=== PATIENT | female | born 1980 | race Caucasian/White ===

== ENCOUNTER 2022-12-24 12:32 | Emergency (ER) | payer OTHER, SELFPAY ==
--- NOTE | 2022-12-24 12:40 | ECG_ITS ---
[facility] Test Date: 2022-12-24 Pat Name: JAIDEN SUN Department: Room: Gender: Female Attendant [facility]: : 1980 Requested By: Nathalia Zambrano Order Number: [id number] Alexis MD: Phillip Benson M.D. Measurements Intervals [place] Rate: 58 P: 28 [place]: 133 QRS: 59 QRSD: 94 T: 54 QT: 409 QTc: 405 Interpretive Statements SINUS BRADYCARDIA WITH SINUS ARRHYTHMIA No previous ECG available for comparison Electronically Signed On 12-24-2022 16:03:34 CDT by Phillip Benson M.D. [id number] f
[2022-12-24 12:49] VITALS: BP 110/71; PULSE 71; RESP 18; TEMP 36.6; O2SAT 100; BMI 25.8
--- NOTE | 2022-12-24 12:54 | XR_ITS ---
WS: [id number] PORTABLE CHEST HISTORY: chest pain COMPARISON: None available. Lungs are clear and well expanded. No pleural effusion or pneumothorax. Cardiac size: Normal. Mediastinum/Aorta: Normal mediastinum. No osseous abnormality seen. Numerous surgical clips are noted within the upper abdomen. IMPRESSION: Unremarkable portable chest.
[2022-12-24 13:20] LABS: Basophils % 0.8 %; Eosinophils # 0.1 10^3/uL (0.0-0.8); Eosinophils % 2.9 %; Hematocrit 29.6 % (36-47); Lymphocytes % 25.5 %; Mean Corpuscular Hemoglobin 18.2 pg (27-33); Mean Corpuscular Volume 67.4 fl (85-98); Monocytes # 0.3 10^3/uL (0.2-0.9); Monocytes % 7.3 %; Neutrophils # 2.43 10^3/uL (1.8-7.7); Nucleated Red Blood Cells % 0 %; Platelet Count 156 10^3/cmm (157-399); Red Blood Count 4.39 10^6/uL (3.85-5.65); Red Cell Distribution Width 21.7 % (12.1-15.1); White Blood Count 3.85 10^3/uL (3.29-11.43)
[2022-12-24 13:44] LABS: HCG, Serum Qual Negative (Negative)
[2022-12-24 13:48] LABS: Troponin(5th) Baseline 6 ng/L (0-10)
[2022-12-24 13:51] LABS: Alanine Aminotransferase 20 U/L (0-33); Albumin Level 4.9 g/dL (3.5-5.2); Alkaline Phosphatase 88 U/L (35-105); Anion Gap 19.1 (5-19); Aspartate Amino Transferase 22 U/L (0-32); Blood Urea Nitrogen 10 mg/dL (6-20); Calcium 9.2 mg/dL (8.5-10.5); Carbon Dioxide 18 mmol/L (22-29); Chloride 109 mmol/L (98-107); Globulin 2.7 g/dL (1.3-4.6); Glomerular Filtration Rate 79.4 mL/min (90-130); Glucose 83 mg/dL (65-115); Osmolality Calculated 292 mOsm/kg (285-295); Potassium 4.1 mmol/L (3.5-5.1); Sodium 142 mmol/L (136-145); Total Bilirubin 0.3 mg/dL (0.15-1.2); Total Protein 7.6 g/dL (6.6-8.7)
[2022-12-24 15:53] VITALS: BP 114/63; PULSE 55; RESP 12; O2SAT 100
--- NOTE | 2022-12-24 16:10 | ECG_ITS ---
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 Measurements Intervals [place] Rate: 58 P: 31 [place]: 148 QRS: 61 QRSD: 92 T: 52 QT: 410 QTc: 406 Interpretive Statements SINUS BRADYCARDIA Compared to ECG 12/24/2022 12:40:37 Sinus arrhythmia no longer present Electronically Signed On 12-25-2022 9:49:28 CDT by Tom Whittaker M.D. [id number]
--- NOTE | 2022-12-24 16:40 | W.ED.CHESTPA ---
Documented by User: Moustapha Tran DO 12/25/22 06:10 HPI - Chest Pain General: Chief Complaint: Chest Pain Stated Complaint: chest pain Time Seen by Provider: 12/24/22 16:18 Source: patient Mode of arrival: ambulatory History of Present Illness: 42-year-old female who presents to the emergency room with complaints of an episode of chest pain. Couple weeks ago she had an episode of chest pain began and resolved spontaneously she did not really notice anything that seem to precipitate it or exacerbated. 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 It resolved after about 10 minutes is very sharp and did not radiate anywhere there was no shortness of breath. She has a history of iron deficiency anemia her hemoglobin is actually improved quite a bit today the time I seen her regarding her hemoglobin back and it was 8 she states the most recent one prior to that was 7 2 she has been down in the sixes before. She not had any recent fever sweats chills no hematochezia melena hematemesis coffee-ground emesis no history of DVT or PE she is not on any anticoagulants. She has chronically had low blood pressures she is not on any antihypertensives not taking any aspirin. She has no known history of coronary artery disease. No recent illness productive cough shortness of breath nausea vomiting diarrhea dysuria urgency or frequency. MD complaint: chest pain Onset (ago): hour(s) Timing of current episode: episodic Prior episodes: Yes Pain location: substernal Quality: sharp Relieving factors: nothing Exacerbating factors: nothing Associated symptoms: Deny abdominal pain, diaphoresis, dyspnea, fever(s), leg edema, nausea, palpitations, sense of impending doom, syncope or vomiting Review of Systems Const: Denies: fever(s), chills or diaphoresis ENMT: Denies: throat pain, ear or mastoid pain, nasal discharge or nasal congestion Card: Reports: chest pain; Denies: palpitations or syncope Resp: Denies: dyspnea GI: Denies: abdominal pain, nausea or vomiting : Denies: flank pain, difficulty voiding, dysuria, urinary frequency or urinary urgency Musc: Denies: neck pain or back pain Skin/Breast: Denies: rash or pruritus PFS ED PFSH: Medical History Iron deficiency anemia Surgical History S/P cholecystectomy Physical Exam Const: COMMON NORMALS: no acute distress GENERAL APPEARANCE: cooperative and comfortable ORIENTATION/CONSCIOUSNESS: Yes awake, Yes oriented to person, Yes oriented to place and Yes oriented to time HENMT: COMMON NORMALS: normocephalic, atraumatic and hearing grossly normal bilaterally HEAD & SCALP: normocephalic and atraumatic Resp: COMMON NORMALS: normal respiratory effort, No retractions, No use of accessory muscles and clear to auscultation bilaterally AUSCULTATION: clear to auscultation bilaterally Cardio: COMMON NORMALS: regular rate, regular rhythm and No murmurs present (Cardio) RATE: regular rate RHYTHM: regular rhythm GI: COMMON NORMALS: Soft to palpation and No hepatosplenomegaly present AUSCULTATION: Yes normoactive bowel sounds PALPATION: Yes Soft to palpation, No Tenderness to palpation present (GI), No Guarding due to palpation present (GI) and Yes No hepatosplenomegaly present Extremity: COMMON NORMALS: normal to inspection, capillary refill normal, no clubbing, cyanosis or edema, no calf tenderness and no pedal edema Neuro: SENSORIUM/ORIENTATION: Yes oriented to person, Yes oriented to place and Yes oriented to time Skin: COMMON NORMALS: no rashes or lesions noted GENERAL SKIN EXAM: no rashes or lesions noted Course Vital Signs: Vital signs: Vital Signs Temperature 97.9 F 12/24/22 12:49 Pulse Rate 68 12/24/22 17:00 Respiratory Rate 12 12/24/22 15:53 Blood Pressure 115/73 12/24/22 20:15 Pulse Oximetry 100 12/24/22 15:53 Oxygen Delivery Me thod Room Air 12/24/22 15:53 MDM - Chest Pain Medical Decision Making Care signed out to Dr. Saldivar at change of shift. See final notes for diagnosis and disposition. Patient presents to the ER with sudden onset substernal sharp chest pain lasting about 10 minutes but denies any shortness of breath. Patient states pain is resolved this time. Patient was worked up in normal fashion including physical exam and laboratory work and imaging that included a CTA. Lab work showed stable anemia, slightly elevated D-dimer, chest CTA was negative for pulmonary embolism or airspace infiltrate. COVID was negative. Patient will be discharged home with a diagnosis of atypical chest pain and will be instructed to follow-up with her family practice physician in the next 7 days or sooner as needed. Lab Data 12/24/22 13:11 12/24/22 13:11 Radiology Impressions Chest CTA 12/24/22 17:50 IMPRESSION: 1. Negative for pulmonary embolus or airspace infiltrate. 2. Gastric surgical sutures. 3. Small hiatal hernia. 4. Mild cardiomegaly. 5. Cholecystectomy. Laboratory Results WBC 3.85 10^3/uL (3.29-11.43) 12/24/22 13:11 RBC 4.39 10^6/uL (3.85-5.65) 12/24/22 13:11 Hgb 8.00 g/dL (11.27-16.99) L 12/24/22 13:11 Hct 29.6 % (36-47) L 12/24/22 13:11 MCV 67.4 fl (85-98) L 12/24/22 13:11 MCH 18.2 pg (27-33) L 12/24/22 13:11 MCHC 27.0 g/dL (30-55) L 12/24/22 13:11 RDW 21.7 % (12.1-15.1) H 12/24/22 13:11 Plt Count 156 10^3/cmm (157-399) L 12/24/22 13:11 MPV 9.0 fL (7.4-10.4) 12/24/22 13:11 Neut % (Auto) 63.0 % 12/24/22 13:11 Lymph % (Auto) 25.5 % 12/24/22 13:11 Hodgeman % (Auto) 7.3 % 12/24/22 13:11 Eos % (Auto) 2.9 % 12/24/22 13:11 Baso % (Auto) 0.8 % 12/24/22 13:11 Neut # (Auto) 2.43 10^3/uL (1.8-7.7) 12/24/22 13:11 Lymph # (Auto) 1.0 10^3/uL (0.8-4.8) 12/24/22 13:11 Hodgeman # (Auto) 0.3 10^3/uL (0.2-0.9) 12/24/22 13:11 Eos # (Auto) 0.1 10^3/uL (0.0-0.8) 12/24/22 13:11 Baso # (Auto) 0.0 10^3/uL (0.0-0.1) 12/24/22 13:11 Nucleated RBC % (auto) 0 % 12/24/22 13:11 Nucleated RBCs # 0.0 /100WBC 12/24/22 13:11 D-Dimer 0.68 ug/mLFEU (0-0.59) H 12/24/22 16:53 Sodium 142 mmol/L (136-145) 12/24/22 13:11 Potassium 4.1 mmol/L (3.5-5.1) 12/24/22 13:11 Chloride 109 mmol/L (98-107) H 12/24/22 13:11 Carbon Dioxide 18 mmol/L (22-29) L 12/24/22 13:11 Anion Gap 19.1 (5-19) H 12/24/22 13:11 BUN 10 mg/dL (6-20) 12/24/22 13:11 Creatinine 0.8 mg/dL (0.5-0.9) 12/24/22 13:11 GFR Calculation 79.4 mL/min (90-130) L 12/24/22 13:11 Glucose 83 mg/dL (65-115) 12/24/22 13:11 Calculated Osmolality 292 mOsm/kg (285-295) 12/24/22 13:11 Calcium 9.2 mg/dL (8.5-10.5) 12/24/22 13:11 Total Bilirubin 0.3 mg/dL (0.15-1.2) 12/24/22 13:11 AST 22 U/L (0-32) 12/24/22 13:11 ALT 20 U/L (0-33) 12/24/22 13:11 Alkaline Phosphatase 88 U/L (35-105) 12/24/22 13:11 Troponin T Baseline 6 ng/L (0-10) 12/24/22 13:11 Troponin T 120 Minute 6.0 ng/L (0-10) 12/24/22 16:34 Delta Troponin T 0 ABS# (0-10) 12/24/22 16:34 Troponin T Hi Sens 6Hr 6.0 ng/L (0-10) 12/24/22 19:17 Troponin T Hi Sens 6Hr Delta 0 ng/L (0-12) 12/24/22 19:17 Total Protein 7.6 g/dL (6.6-8.7) 12/24/22 13:11 Albumin 4.9 g/dL (3.5-5.2) 12/24/22 13:11 Globulin 2.7 g/dL (1.3-4.6) 12/24/22 13:11 HCG, Qual Negative (Negative) 12/24/22 13:11 SARS-CoV-2 Ag (Rapid) negative (Negative) 12/24/22 17:00 Discharge Plan Discharge Patient Disposition: Home Clinical Impression: Atypical chest pain Condition: Stable Prescriptions: No Action pantoprazole 40 mg tablet,delayed release (DR/EC) 40 mg PO BID tranexamic acid 650 mg Tablet 650 mg PO TID PRN (Reason: HEAVY MENSTRUAL BLEEDING ) Stelara See Rx Instructions .ROUTE .COMPLEX Rx Instructions: INJECT EVERY 12 WEEKS DIRECTED (DUE TO GET 12/25/22) Venofer See Rx Instructions .ROUTE .COMPLEX Rx Instructions: 5 INFUSIONS OVER 14 DAYS ON MON, WED, AND FRI (WILL FINISH THIS INFUSION THIS WEEK 12/28/22) Discharge Orders: Discharge ED (Routine); Ordered 12/24/22 Ordered By: Danis Saldivar Referrals: Kareem Walsh MD [Primary Care Provider] - 1 week Patient Instructions: Chest Pain - Noncardiac Activity Restrictions/Additional Instructions: Please follow-up with your family practice physician in the next 7 days or sooner as needed. If your chest pain returns and/or will not resolve please return to the ER for further evaluation. Coding Level of Care Code ED Crisis Mental Health Therapist for Chg Fwd Documented by User: Danis Saldivar DO 12/24/22 20:02 HPI - Chest Pain General: Chief Complaint: Chest Pain Stated Complaint: chest pain Time Seen by Provider: 12/24/22 16:18 [facility]SH: Medical History Iron deficiency anemia Surgical History S/P cholecystectomy Course Vital Signs: Vital signs: Vital Signs Temperature 97.9 F 12/24/22 12:49 Pulse Rate 68 12/24/22 17:00 Respiratory Rate 12 12/24/22 15:53 Blood Pressure 115/73 12/24/22 20:15 Pulse Oximetry 100 12/24/22 15:53 Oxygen Delivery Me thod Room Air 12/24/22 15:53 MDM - Chest Pain Medical Decision Making Patient presents to the ER with sudden onset substernal sharp chest pain lasting about 10 minutes but denies any shortness of breath. Patient states pain is resolved this time. Patient was worked up in normal fashion including physical exam and laboratory work and imaging that included a CTA. Lab work showed stable anemia, slightly elevated D-dimer, chest CTA was negative for pulmonary embolism or airspace infiltrate. COVID was negative. Patient will be discharged home with a diagnosis of atypical chest pain and will be instructed to follow-up with her family practice physician in the next 7 days or sooner as needed. Differential Diagnosis Unlikely acute massive pulmonary embolism, acute respiratory failure, acute myocardial infarction, cardiac arrest or sudden cardiac Medical Records I reviewed the patient's medical records. Lab Data 12/24/22 13:11 12/24/22 13:11 Radiology Impressions Chest CTA 12/24/22 17:50 IMPRESSION: 1. Negative for pulmonary embolus or airspace infiltrate. 2. Gastric surgical sutures. 3. Small hiatal hernia. 4. Mild cardiomegaly. 5. Cholecystectomy. Laboratory Results WBC 3.85 10^3/uL (3.29-11.43) 12/24/22 13:11 RBC 4.39 10^6/uL (3.85-5.65) 12/24/22 13:11 Hgb 8.00 g/dL (11.27-16.99) L 12/24/22 13:11 Hct 29.6 % (36-47) L 12/24/22 13:11 MCV 67.4 fl (85-98) L 12/24/22 13:11 MCH 18.2 pg (27-33) L 12/24/22 13:11 MCHC 27.0 g/dL (30-55) L 12/24/22 13:11 RDW 21.7 % (12.1-15.1) H 12/24/22 13:11 Plt Count 156 10^3/cmm (157-399) L 12/24/22 13:11 MPV 9.0 fL (7.4-10.4) 12/24/22 13:11 Neut % (Auto) 63.0 % 12/24/22 13:11 Lymph % (Auto) 25.5 % 12/24/22 13:11 Hodgeman % (Auto) 7.3 % 12/24/22 13:11 Eos % (Auto) 2.9 % 12/24/22 13:11 Baso % (Auto) 0.8 % 12/24/22 13:11 Neut # (Auto) 2.43 10^3/uL (1.8-7.7) 12/24/22 13:11 Lymph # (Auto) 1.0 10^3/uL (0.8-4.8) 12/24/22 13:11 [place] # (Auto) 0.3 10^3/uL (0.2-0.9) 12/24/22 13:11 Eos # (Auto) 0.1 10^3/uL (0.0-0.8) 12/24/22 13:11 Baso # (Auto) 0.0 10^3/uL (0.0-0.1) 12/24/22 13:11 Nucleated RBC % (auto) 0 % 12/24/22 13:11 Nucleated RBCs # 0.0 /100WBC 12/24/22 13:11 D-Dimer 0.68 ug/mLFEU (0-0.59) H 12/24/22 16:53 Sodium 142 mmol/L (136-145) 12/24/22 13:11 Potassium 4.1 mmol/L (3.5-5.1) 12/24/22 13:11 Chloride 109 mmol/L (98-107) H 12/24/22 13:11 Carbon Dioxide 18 mmol/L (22-29) L 12/24/22 13:11 Anion Gap 19.1 (5-19) H 12/24/22 13:11 BUN 10 mg/dL (6-20) 12/24/22 13:11 Creatinine 0.8 mg/dL (0.5-0.9) 12/24/22 13:11 GFR Calculation 79.4 mL/min (90-130) L 12/24/22 13:11 Glucose 83 mg/dL (65-115) 12/24/22 13:11 Calculated Osmolality 292 mOsm/kg (285-295) 12/24/22 13:11 Calcium 9.2 mg/dL (8.5-10.5) 12/24/22 13:11 Total Bilirubin 0.3 mg/dL (0.15-1.2) 12/24/22 13:11 AST 22 U/L (0-32) 12/24/22 13:11 ALT 20 U/L (0-33) 12/24/22 13:11 Alkaline Phosphatase 88 U/L (35-105) 12/24/22 13:11 Troponin T Baseline 6 ng/L (0-10) 12/24/22 13:11 Troponin T 120 Minute 6.0 ng/L (0-10) 12/24/22 16:34 Delta Troponin T 0 ABS# (0-10) 12/24/22 16:34 Troponin T Hi Sens 6Hr 6.0 ng/L (0-10) 12/24/22 19:17 Troponin T Hi Sens 6Hr Delta 0 ng/L (0-12) 12/24/22 19:17 Total Protein 7.6 g/dL (6.6-8.7) 12/24/22 13:11 Albumin 4.9 g/dL (3.5-5.2) 12/24/22 13:11 Globulin 2.7 g/dL (1.3-4.6) 12/24/22 13:11 HCG, Qual Negative (Negative) 12/24/22 13:11 SARS-CoV-2 Ag (Rapid) negative (Negative) 12/24/22 17:00 Discharge Plan Discharge Patient Disposition: Home Clinical Impression: Atypical chest pain Condition: Stable Prescriptions: No Action pantoprazole 40 mg tablet,delayed release (DR/EC) 40 mg PO BID tranexamic acid 650 mg Tablet 650 mg PO TID PRN (Reason: HEAVY MENSTRUAL BLEEDING ) Stelara See Rx Instructions .ROUTE .COMPLEX Rx Instructions: INJECT EVERY 12 WEEKS DIRECTED (DUE TO GET 12/25/22) Venofer See Rx Instructions .ROUTE .COMPLEX Rx Instructions: 5 INFUSIONS OVER 14 DAYS ON MON, WED, AND FRI (WILL FINISH THIS INFUSION THIS WEEK 12/28/22) Discharge Orders: Discharge ED (Routine); Ordered 12/24/22 Ordered By: Danis Saldivar Referrals: Kareem Walsh MD [Primary Care Provider] - 1 week Patient Instructions: Chest Pain - Noncardiac Activity Restrictions/Additional Instructions: Please follow-up with your family practice physician in the next 7 days or sooner as needed. If your chest pain returns and/or will not resolve please return to the ER for further evaluation. Coding Level of Care Code ED Crisis Mental Health Therapist for Janette Catherine
[2022-12-24 17:00] VITALS: BP 112/74; PULSE 68
[2022-12-24 17:11] LABS: Troponin 5 2HR Delta 0 ABS# (0-10)
[2022-12-24 17:11] LABS: D Dimer 0.68 ug/mLFEU (0-0.59)
[2022-12-24 17:38] LABS: SARS Covid-2 Antigen negative (Negative)
--- NOTE | 2022-12-24 17:50 | CTR_ITS ---
PROCEDURE INFORMATION: Exam: CTA Chest With Contrast Exam date and time: 12/24/2022 6:34 PM Age: 42 years old Clinical indication: Abnormal findings; Other: Elevated d dimer; Additional info: Elevated d dimer, chest pain, sharp, substernal TECHNIQUE: Imaging protocol: Computed tomographic angiography of the chest with contrast. Exam focused on the arteries. 3D rendering (Not supervised by radiologist): MIP and/or 3D reconstructed images were created by the technologist. Radiation optimization: All CT scans at this facility use at least one of these dose optimization techniques: automated exposure control; mA and/or kV adjustment per patient size (includes targeted exams where dose is matched to clinical indication); or iterative reconstruction. Contrast material: OMNI 350; Contrast volume: 100 ml; Contrast route: INTRAVENOUS (IV); REPORTING DATA: Count of CT and Cardiac NM exams in prior 12 months: This patient has received 0 known CTs and 0 known cardiac nuclear medicine studies in the 12 months prior to the current study. COMPARISON: CR XR chest 1V portable [id number] 12/24/2022 1:23 PM RADIATION DOSE METRICS: Total DLP (mGy-cm): 317 FINDINGS: Pulmonary arteries: Normal. No pulmonary emboli. Aorta: Unremarkable. No aortic aneurysm. No aortic dissection. Lungs: Unremarkable. No consolidation. No masses. Pleural spaces: Unremarkable. No pneumothorax. No pleural effusion. Heart: Mild cardiomegaly. Lymph nodes: Unremarkable. No enlarged lymph nodes. Diaphragm: Small hiatal hernia. Stomach and bowel: Gastric surgical sutures. Bones/joints: Unremarkable. No acute fracture. Soft tissues: Cholecystectomy. CT/CT angio chest PE protcl [id number] IMPRESSION: 1. Negative for pulmonary embolus or airspace infiltrate. 2. Gastric surgical sutures. 3. Small hiatal hernia. 4. Mild cardiomegaly. 5. Cholecystectomy.
[2022-12-24] MEDS: iohexol 350 mg/mL 500 mL Btl (per mL) IV (18:40)
--- NOTE | 2022-12-24 18:54 | ECG_ITS ---
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 Measurements Intervals [place] Rate: 65 P: 36 SC: 159 QRS: 54 QRSD: 88 T: 48 QT: 410 QTc: 427 Interpretive Statements SINUS RHYTHM WITH MARKED SINUS ARRHYTHMIA Compared to ECG 12/24/2022 16:10:56 Sinus bradycardia no longer present Electronically Signed On 12-25-2022 9:49:03 CDT by Tom Whittaker M.D. [id number]
[2022-12-24 20:11] LABS: Troponin 5 6HR Delta 0 ng/L (0-12)
[2022-12-24 20:15] VITALS: BP 115/73
== END 2022-12-24 20:15 | disposition home or self-care (01) ==
PROVIDERS: Emergency Medicine; Physician Assistant; Emergency Provider Family Medicine; PCP Family Medicine
DX: R07.89 Other chest pain (principal); Z20.822 Contact with and (suspected) exposure to COVID-19; K44.9 Diaphragmatic hernia without obstruction or gangrene
CPT/HCPCS: 36415; 71045; 71275; 80053; 84484; 84703; 85025; 85378; 87426; 93005; 99285; Q9967

== ENCOUNTER 2022-12-28 08:03 | Oncology outpatient (recurring) (ONCR) | payer OTHER, SELFPAY ==
[2022-12-19 08:30] VITALS: BP 110/56; PULSE 80; RESP 16; TEMP 36.6; O2SAT 96
[2022-12-19] MEDS: sodium chloride 0.9% 250 ML 75 ML IV (09:11)
[2022-12-19] MEDS: iron sucrose 200 MG in sodium chloride 0.9% (100 ml) 100 ML 220 MG IV (09:12)
[2022-12-19 10:15] VITALS: BP 112/68; PULSE 68; RESP 16; TEMP 37; O2SAT 99
[2022-12-21 08:26] VITALS: BP 113/57; PULSE 84; RESP 18; TEMP 36.3; O2SAT 98
[2022-12-21] MEDS: sodium chloride 0.9% 250 ML 50 ML IV (08:44)
[2022-12-21] MEDS: iron sucrose 200 MG in sodium chloride 0.9% (100 ml) 100 ML 220 MG IV (08:45)
[2022-12-21 09:40] VITALS: BP 109/56; PULSE 65; RESP 16; TEMP 36.6; O2SAT 99
[2022-12-24 08:25] VITALS: BP 99/54; PULSE 76; RESP 16; TEMP 36.4; O2SAT 100
[2022-12-24] MEDS: sodium chloride 0.9% 250 ML 75 ML IV (08:30)
[2022-12-24] MEDS: iron sucrose 200 MG in sodium chloride 0.9% (100 ml) 100 ML 220 MG IV (08:40)
[2022-12-24 09:40] VITALS: BP 109/55; PULSE 65; RESP 16; TEMP 36.4; O2SAT 100
[2022-12-26 08:05] VITALS: BP 108/59; PULSE 69; RESP 16; TEMP 36.3; O2SAT 99
[2022-12-26] MEDS: iron sucrose 200 MG in sodium chloride 0.9% (100 ml) 100 ML 220 MG IV (08:32)
[2022-12-26 09:08] VITALS: BP 103/59; PULSE 78; RESP 16; TEMP 36.5; O2SAT 90
[2022-12-28 08:15] VITALS: BP 104/67; PULSE 71; RESP 16; TEMP 36.7; O2SAT 99
[2022-12-28] MEDS: iron sucrose 200 MG in sodium chloride 0.9% (100 ml) 100 ML 220 MG IV (08:36)
[2022-12-28 09:15] VITALS: BP 111/65; PULSE 62; RESP 16; TEMP 36.3; O2SAT 100
== END 2023-01-12 23:59 | disposition home or self-care (01) ==
PROVIDERS: PCP Family Medicine; Visit Provider Family Medicine
DX: D50.8 Other iron deficiency anemias (principal)
CPT/HCPCS: 96365; J1756; J7050

== ENCOUNTER 2023-02-14 14:22 | Oncology outpatient (recurring) (ONCR) | payer OTHER, SELFPAY ==
[2023-02-14 17:14] LABS: Reticulocyte % 0.7 % (0.5-2.0)
[2023-02-14 17:15] LABS: Basophils % 0.5 %; Eosinophils # 0.1 10^3/uL (0.0-0.8); Eosinophils % 2.9 %; Hematocrit 38.3 % (36-47); Lymphocytes % 23.7 %; Mean Corpuscular HGB Conc 30.8 g/dL (30-55); Mean Corpuscular Hemoglobin 23.6 pg (27-33); Mean Corpuscular Volume 76.6 fl (85-98); Monocytes # 0.2 10^3/uL (0.2-0.9); Monocytes % 5.3 %; Neutrophils # 2.78 10^3/uL (1.8-7.7); Neutrophils % 67.4 %; Nucleated Red Blood Cells % 0 %; Platelet Count 122 10^3/cmm (157-399); White Blood Count 4.13 10^3/uL (3.29-11.43)
[2023-02-14 17:32] LABS: INR 0.98 (0.8-1.2)
[2023-02-14 17:33] LABS: Partial Thromboplastin Time 27.6 SECONDS (23.9-36.7)
[2023-02-14 18:01] LABS: Alanine Aminotransferase 19 U/L (0-33); Albumin Level 4.6 g/dL (3.5-5.2); Alkaline Phosphatase 100 U/L (35-105); Anion Gap 14.1 (5-19); Aspartate Amino Transferase 23 U/L (0-32); Blood Urea Nitrogen 10 mg/dL (6-20); Calcium 9.7 mg/dL (8.5-10.5); Carbon Dioxide 24 mmol/L (22-29); Chloride 107 mmol/L (98-107); Ferritin 24 ng/mL (15-150); Globulin 3.7 g/dL (1.3-4.6); Glomerular Filtration Rate 79.4 mL/min (90-130); Glucose 72 mg/dL (65-115); Iron 38 ug/dL (37-145); Lactate Dehydrogenase 171 U/L (135-214); Osmolality Calculated 290 mOsm/kg (285-295); Percent Saturation 8.9 % (20-50); Potassium 4.1 mmol/L (3.5-5.1); Sodium 141 mmol/L (136-145); Thyroid Stimulating Hormone 3.36 uIU/mL (0.27-4.20); Total Bilirubin 0.3 mg/dL (0.15-1.2); Total Iron Binding Capacity 426 mcg/dl; Total Protein 8.3 g/dL (6.6-8.7); Unsaturated Iron Binding 388 ug/dL (112-347); Vitamin B12 1125 pg/mL (232-1245)
[2023-02-14 18:03] LABS: Free T4 Free Thyroxine 1.08 ng/dL (0.82-1.77)
[2023-02-14 18:21] LABS: Slide Review Slide Review Perform
[2023-02-14 18:33] LABS: LAB Peripheral Smear Sent for Review
[2023-02-14 18:35] LABS: Folate Level 6.7 ng/mL (4.8-37.3)
[2023-02-14 20:58] LABS: Hepatitis A Antibody IgM Non-Reactive (Nonreactive); Hepatitis B Core AB, Total Non-Reactive (Nonreactive); Hepatitis B Surface AB 176.5 (11.5-1000); Hepatitis B Surface Antigen Non-Reactive (Nonreactive); Hepatitis C Virus Antibody Non-Reactive (Nonreactive)
[2023-02-16 10:06] LABS: PROTEIN, TOTAL 7.6 g/dL (6.1-8.1)
[2023-02-18 13:00] LABS: KAPPA LIGHT CHAIN, FREE, SERUM 31.9 mg/L (3.3-19.4); KAPPA/LAMBDA LIGHT CHAINS FREE 1.63 (0.26-1.65); LAMBDA LIGHT CHAIN, FREE, SERU 19.6 mg/L (5.7-26.3)
[2023-02-18 13:13] LABS: Leukemia Profile (BBPL) See Report; Lymphoma Profile (BBPL) See Report
[2023-02-18 17:10] LABS: ALBUMIN 4.4 g/dL (3.8-4.8); ALPHA 1 GLOBULIN 0.3 g/dL (0.2-0.3); ALPHA 2 GLOBULIN 0.7 g/dL (0.5-0.9); BETA 1 GLOBULIN 0.6 g/dL (0.4-0.6); BETA 2 GLOBULIN 0.4 g/dL (0.2-0.5); GAMMA GLOBULIN 1.3 g/dL (0.8-1.7)
[2023-02-19 20:09] LABS: Methylmalonic Acid 100 nmol/L (87-318)
== END 2023-03-14 23:59 | disposition home or self-care (01) ==
PROVIDERS: Internal Medicine; PCP Family Medicine; Visit Provider Family Medicine
DX: D50.8 Other iron deficiency anemias (principal); D72.819 Decreased white blood cell count, unspecified; D70.9 Neutropenia, unspecified; D69.6 Thrombocytopenia, unspecified; Z79.899 Other long term (current) drug therapy
CPT/HCPCS: 36415; 80053; 80503; 82607; 82728; 82746; 83010; 83540; 83550; 83615; 83883; 83921; 84155; 84165; 84439; 84443; 85025; 85045; 85610; 85730; 86705; 86706; 86709; 86803; 86850; 86880; 86900; 87340; 88184; 88185

== ENCOUNTER 2023-04-23 13:43 | Outpatient (CLI) | payer OTHER, SELFPAY ==
[2023-04-23 14:37] LABS: Basophils # 0.1 10^3/uL (0.0-0.1); Basophils % 0.5 %; Eosinophils # 0.3 10^3/uL (0.0-0.8); Eosinophils % 2.8 %; Hematocrit 31.6 % (36-47); Lymphocytes # 1.1 10^3/uL (0.8-4.8); Lymphocytes % 12.1 %; Mean Corpuscular HGB Conc 29.4 g/dL (30-55); Mean Corpuscular Hemoglobin 23.8 pg (27-33); Mean Corpuscular Volume 80.8 fl (85-98); Monocytes # 0.4 10^3/uL (0.2-0.9); Monocytes % 4.6 %; Neutrophils # 7.44 10^3/uL (1.8-7.7); Neutrophils % 79.5 %; Nucleated Red Blood Cells % 0 %; Platelet Count 418 10^3/cmm (157-399); Red Blood Count 3.91 10^6/uL (3.85-5.65); Red Cell Distribution Width 14.6 % (12.1-15.1); White Blood Count 9.36 10^3/uL (3.29-11.43)
== END 2023-04-23 13:44 | disposition home or self-care (01) ==
PROVIDERS: PCP Family Medicine; Visit Provider Family Medicine
DX: Z01.89 Encounter for other specified special examinations (principal)
CPT/HCPCS: 36415; 85025

== ENCOUNTER 2024-05-04 11:21 | Outpatient (CLI) | payer OTHER, SELFPAY ==
--- NOTE | 2024-05-04 11:25 | MM_ITS ---
WS: [id number] SCREENING DIGITAL TOMOSYNTHESIS MAMMOGRAM WITH CAD HISTORY: SCREENING COMPARISON: None available. Bilateral CC and MLO with tomosynthesis views submitted. Synthetic mammography reviewed. Computer aid ed detection analyzed. Breast composition: The breasts are heterogeneously dense, which may obscure small masses. No suspici ous masses, microcalcifications or architectural distortion. MM/MM scr BI tomosynthesis [id number] IMPRESSION: BI-RADS: 2 - Benign FOLLOW UP: 1 Year Follow-up
== END 2024-05-04 11:22 | disposition home or self-care (01) ==
LOC: RAD 11:23
PROVIDERS: PCP Family Medicine; Visit Provider Family Medicine
DX: Z12.31 Encounter for screening mammogram for malignant neoplasm of breast (principal); R92.333 Mammographic heterogeneous density, bilateral breasts
CPT/HCPCS: 77063; 77067